=== PATIENT | male | born 1975 | race Caucasian/White ===

== ENCOUNTER 2023-03-06 00:39 | Emergency (ER) | payer MEDICAID ==
[~2023-03-06] VITALS: Ht 170.2 cm; Wt 66.0 kg
[2023-03-06 00:44] VITALS: O2SAT 96
[2023-03-06] MEDS ORDERED: LORAZEPAM 2MG/ML CPJ IM ONE (00:45)
[2023-03-06] MEDS ORDERED: HALOPERIDOL LACTATE 5MG/ML VIAL IM ONE (00:45)
[2023-03-06 01:16] LABS: BASOPHILS % 0.5 % (0.0-2.0); EOSINOPHILS % 2.5 % (0.0-5.0); HEMATOCRIT. 38.4 % (42.0-52.0); HEMOGLOBIN. 12.7 g/dL (14.0-18.0); MEAN CORPUSCULAR HEMOGLOBIN 32.9 pg (28.0-32.0); MEAN CORPUSCULAR VOLUME 99.5 fL (80.0-94.0); MONOCYTES % 8.6 % (2.0-8.0); NEUTROPHILS % 47.4 % (40.0-76.0); PLATELET 132 x1000/uL (130-400); RED BLOOD CELL COUNT 3.86 mill/uL (4.7-6.1); RED CELL DISTRIBUTION WIDTH 15.9 % (11.6-14.6)
[2023-03-06 01:33] LABS: CHLORIDE 110 mEq/L (98-107)
[2023-03-06 01:43] LABS: ETHANOL BLOOD 385 mg/dL (-10)
[2023-03-06 01:53] LABS: *AMPHETAMINES SCREEN URINE NEGATIVE (NEGATIVE); *BARBITURATES SCREEN URINE NEGATIVE (NEGATIVE); *BENZODIAZEPINES SCREEN URINE NEGATIVE (NEGATIVE); *COCAINE SCREEN URINE NEGATIVE (NEGATIVE); CANNABINOID URINE SCREEN NEGATIVE (NEGATIVE); METHADONE URINE SCREEN NEGATIVE (NEGATIVE); OPIATES URINE SCREEN NEGATIVE (NEGATIVE); PHENCYCLIDINE URINE SCREEN NEGATIVE (NEGATIVE)
[2023-03-06] MEDS ORDERED: IBUPROFEN 400MG TABLET PO ONE (11:15)
[2023-03-06 12:57] VITALS: BP 132/79; PULSE 88; RESP 16; TEMP 97.8
== END 2023-03-06 13:10 | disposition home or self-care (01) ==
LOC: ER 00:39
DX: R45.851 Suicidal ideations (principal); I10 Essential (primary) hypertension; E11.9 Type 2 diabetes mellitus without complications; Z20.822 Contact with and (suspected) exposure to COVID-19
CPT/HCPCS: 80305; 80048; 80307; 80329; 80320; 85025; 36415; 96372; 99283; 87426; J2060; C9803; Z7610 ×2; G0480

== ENCOUNTER 2023-08-16 00:30 | Emergency (ER) | payer MEDICAID ==
[~2023-08-16] VITALS: Ht 167.6 cm; Wt 75.0 kg
[2023-08-16 00:53] VITALS: BP 135/95; TEMP 98.4; O2SAT 97
[2023-08-16 00:55] VITALS: PULSE 79; RESP 16
[2023-08-16] MEDS ORDERED: ACET-2708 MT (05:30)
[2023-08-16] MEDS ORDERED: ONDANSETRON 4MG ODT PO ONE (05:30)
[2023-08-16] MEDS ORDERED: HYDROCODONE/ACETAMINOPHEN 5/325MG TABLET PO ONE (05:30)
== END 2023-08-16 05:53 | disposition home or self-care (01) ==
LOC: ER 00:30
DX: S50.01XA Contusion of right elbow, initial encounter (principal); E11.9 Type 2 diabetes mellitus without complications; I10 Essential (primary) hypertension; W18.30XA Fall on same level, unspecified, initial encounter; Y93.89 Activity, other specified; Y92.89 Other specified places as the place of occurrence of the external cause; Y99.8 Other external cause status
CPT/HCPCS: 73060; 73090; 99284